=== PATIENT | female | born 1955 | race Caucasian/White ===

== ENCOUNTER 2017-10-24 14:15 | Inpatient (IN) | payer OTHER, MEDICAID ==
[2017-10-24] MEDS ORDERED: LASIX IVP ONE ×2 (14:35→14:54)
--- NOTE | 2017-10-24 14:59 | DR.SOBA ---
HPI - Time Seen Time seen: 14:30 - Primary Care Physician Primary Care Physician: FANG RUBIO , - Complaints Chief Complaint Doctors Comments: Dyspnea, generalised edema, dyspnea chronic These symptoms have worsened in passed week and moreso since yesterday. She had her cardiology f/u 2 days ago and her Lasix was increased from 20 to 30 mg QD. Her last hospitalisation for CHF was at [facility] in [place] in June 2017. That was when her last 2D-ECHO was done. She had labs sometime in September 2017. She of course has orthopnea. Chief Complaint:: PT'S FAMILY STATES " SHE HAS BEEN SWELLING AND HER MD INCREASED HER LASIX ON 10/23/17 TO 30 MG PT IS STILL SWELLING PT HAS HAD SCANT UA AND PT EYES LIDS ARE SWOLLEN AND FLUID FILLED AND LUNGS ARE DEMINISHED .. BR Self Treatment fo Chief Complaint: PT HAS NO COUGH AND SHE IS VERY DROWSY PTS FAMILY STATES SHE TOOK A MUSCLE RELAXER TODAY . .BR - Reviewed Nurses Notes Reviewed: Yes - Source History Provided: Patient, Family Member - Mode of Arrival Mode of Arrival: Ambulatory - Timing Onset of Chief Complaint: 10/13/17 - Context Onset:: At Rest, With Light Exertion PE Risk Factors:: Immobilization History of:: CHF - Modifying Factors Worsens:: Lying Flat, Other (exertion) - Associated Signs and Symptoms Associated Signs and Symptoms: Leg Swelling PMH - PMH Past Medical History: Yes Past Medical History: Anxiety, CHF, Diabetes, Dyslipidemia, Seizures Past Medical History Comment: SEVEN CONCUTIONS, GASTROPORESIS , > LIVER ENZYMES, Past Surgical History: Yes Past Surgical History Comment: SHOULDER , FX TO> LIVER ENZYMES - Family History History of Family Medical Conditions: No - Social History Have you used tobacco products in the last 12 months: No Type of Tobacco Use: None Does any household member use tobacco: No Do you use any recreational Drugs:: No Lives With: Family Lives Where: Home - infectious screening In the last 2 months have you had wt loss of >10#?: NO Have you had fever, night sweats or hemotysis?: No Have you traveled outside the country in the last 6 months?: No Isolation: Standard ROS - Review of Systems Constitutional: No Symptoms Reported Eyes: Other (puffy eyelids) ENTM: No Symptoms Reported Respiratoy: Short of Breath Cardiovascular: No Symptoms Reported Gastrointestinal/Abdominal: Other (distended chronically) Genitourinary: No Symptoms Reported Neurological: No Symptoms Reported Musculoskeletal: No Symptoms Reported Integumentary: No Symptoms Reported Hematologic/Lymphatic: No Symptoms Reported Endocrine: No Symptoms Reported Psychiatric: No Symptoms Reported All Other Systems: Reviewed and Negative PE - Vital Signs Vitals: Temperature 96.3 F Pulse Rate 82 Respiratory Rate 20 Blood Pressure 144/64 O2 Sat by Pulse Oximetry 97 - General Limitations: No Limitations General Appearance: Alert, In No Apparent Distress - Head Head Exam: Normal Inspection - Eyes Eye exam: PERRL, EOMI, Other (swollen/puffy eyelids) - ENT ENT Exam: Normal Exam - Neck Neck Exam: Normal Inspection, Trachea Midline - Chest Chest Inspection: Normal Inspection - Respiratory Respiratory Exam: Bilateral Rales - Cardiovascular Cardiovascular Exam: Regular Rate, Normal Rhythm, +S1, +S2 - Abdominal Exam Abdominal Exam: Normal Bowel Sounds, Distention - Extremities Extremities Exam: Normal Inspection, Full ROM, Edema (bilateral legs) - Neurologic Neurological Exam: Alert, Oriented X3 - Psychiatric Psychiatric Exam: Normal Affect, Normal Mood - Skin Skin Exam: Warm, Dry, Intact, Normal Color ROR - Labs Reviewed Result Diagrams: 10/24/17 14:53 10/24/17 14:53 Laboratory: WBC 6.9 X10^3/uL (3.6-10.0) 10/24/17 14:53 RBC 2.90 X10^6/uL (3.5-5.4) L 10/24/17 14:53 Hgb 9.2 g/dL (12.0-16.0) L 10/24/17 14:53 Hct 28.0 % (36.0-47.0) L 10/24/17 14:53 MCV 96.8 fL (80.0-100.0) 10/24/17 14:53 MCH 31.9 pg (27.0-34.0) 10/24/17 14:53 MCHC 32.9 g/dL (33.0-35.0) L 10/24/17 14:53 RDW 15.7 % (11.6-16.5) 10/24/17 14:53 Plt Count 197 X10^3/uL (150.0-450.0) 10/24/17 14:53 MPV 8.6 fL (7.4-11.0) 10/24/17 14:53 Neut % (Auto) 60.3 % (42.0-75.0) 10/24/17 14:53 Lymph % (Auto) 21.0 % (21.0-51.0) 10/24/17 14:53 [place] % (Auto) 13.0 % (0.0-13.0) 10/24/17 14:53 Eos % (Auto) 5.0 % (0.9-2.9) H 10/24/17 14:53 Baso % (Auto) 0.7 % (0.2-1.0) 10/24/17 14:53 Neut # (Auto) 4.2 x10^3/uL (2.2-4.8) 10/24/17 14:53 Lymph # (Auto) 1.5 X10^3/uL (1.3-2.9) 10/24/17 14:53 [place] # (Auto) 0.9 x10^3/uL (0.3-0.8) H 10/24/17 14:53 Eos # (Auto) 0.3 x10^3/uL (0.0-0.2) H 10/24/17 14:53 Baso # (Auto) 0.1 X10^3/uL (0.0-0.1) 10/24/17 14:53 Absolute Nucleated RBC 0.1 /100WBC 10/24/17 14:53 Sodium 144 mmol/L (136-145) 10/24/17 14:53 Corrected Sodium 145 mmol/L (136-145) 10/24/17 14:53 Potassium 4.7 mmol/L (3.5-5.1) 10/24/17 14:53 Chloride 108 mmol/L (98-107) H 10/24/17 14:53 Carbon Dioxide 32.3 mmol/L (21-32) H 10/24/17 14:53 BUN 39 mg/dL (7-18) H 10/24/17 14:53 Creatinine 1.27 mg/dL (0.55-1.02) H 10/24/17 14:53 Est GFR (MDRD) Af Amer 55 (>60) L 10/24/17 14:53 Est GFR (MDRD) Non-Af 46 (>60) L 10/24/17 14:53 Glucose 129 mg/dL (65-99) H 10/24/17 14:53 Calcium 9.8 mg/dL (8.5-10.1) 10/24/17 14:53 Corrected Calcium 11.4 mg/dL (8.5-10.1) H 10/24/17 14:53 Total Bilirubin 0.50 mg/dL (0.2-1.0) 10/24/17 14:53 AST 66 Units/L (15-37) H 10/24/17 14:53 ALT 36 Units/L (12-78) 10/24/17 14:53 Alkaline Phosphatase 175 Units/L (46-116) H 10/24/17 14:53 Creatine Kinase 74 Units/L (26-192) 10/24/17 14:53 CK-MB (CK-2) 1.6 ng/mL (0-4.0) 10/24/17 14:53 CK/CKMB % Calc 2.2 % (<4) 10/24/17 14:53 Troponin I < 0.02 ng/mL (0-1.5) 10/24/17 14:53 B-Natriuretic Peptide 310 pg/mL (0-79) H 10/24/17 14:53 Total Protein 7.0 g/dL (6.4-8.2) 10/24/17 14:53 Albumin 2.0 g/dL (3.4-5.0) L 10/24/17 14:53 Globulin 5.0 g/dL (2.5-4.5) H 10/24/17 14:53 Albumin/Globulin Ratio 0.4 Ratio (1.1-2.1) L 10/24/17 14:53 Urine pH 5.0 (5.0 - 8.0) 10/24/17 14:53 Ur Specific [place] 1.015 (1.000-1.030) 10/24/17 14:53 Urine Protein 3+ (NEGATIVE) 10/24/17 14:53 Urine Glucose (UA) 4+ (NEGATIVE) 10/24/17 14:53 Urine Ketones Negative (NEGATIVE) 10/24/17 14:53 Urine Occult Blood 1+ (NEGATIVE) 10/24/17 14:53 Urine Nitrite Negative (NEGATIVE) 10/24/17 14:53 Urine Bilirubin Negative (NEGATIVE) 10/24/17 14:53 Urine Urobilinogen Normal (NORMAL) 10/24/17 14:53 Ur Leukocyte Esterase Negative (NEGATIVE) 10/24/17 14:53 - XRAY XRAY Interpreted by: Self (cardiomegaly with cephalisation) - EKG Rate: 81 [place]: LAD Rhythm: NSR Block: None - Diagnosis Discharge Problem: CHF exacerbation - Discharge Plan Disposition: ADMITTED INPATIENT Condition: Stable - Follow ups/Referrals Follow ups/Referrals: FANG RUBIO [Primary Care Provider] - 3 days - Instructions Instructions: Heart Failure, [id number]
[2017-10-24 15:12] LABS: BILIRUBIN,URINE NEGATIVE (NEGATIVE); BLOOD/HEMOGLOBIN,URINE 1+ (NEGATIVE); GLUCOSE, URINE 4+ (NEGATIVE); KETONES,URINE NEGATIVE (NEGATIVE); LEUKOCYTE ESTERASE ,URINE NEGATIVE (NEGATIVE); NITRITES,URINE NEGATIVE (NEGATIVE); PROTEIN,URINE 3+ (NEGATIVE); UROBILINOGEN,URINE NORMAL (NORMAL)
[2017-10-24 15:14] LABS: BASOPHILS # (AUTO) 0.1 X10^3/uL (0.0-0.1); BASOPHILS % (AUTO) 0.7 % (0.2-1.0); EOSINOPHILS # (AUTO) 0.3 x10^3/uL (0.0-0.2); HEMOGLOBIN 9.2 g/dL (12.0-16.0); LYMPHOCYTES # (AUTO) 1.5 X10^3/uL (1.3-2.9); MEAN CORPUSCULAR HEMOGLOBIN 31.9 pg (27.0-34.0); MEAN CORPUSCULAR HGB CONC 32.9 g/dL (33.0-35.0); MEAN CORPUSCULAR VOLUME 96.8 fL (80.0-100.0); MEAN PLATELET VOLUME 8.6 fL (7.4-11.0); MONOCYTES # (AUTO) 0.9 x10^3/uL (0.3-0.8); NEUTROPHILS # (AUTO) 4.2 x10^3/uL (2.2-4.8); NEUTROPHILS % (AUTO) 60.3 % (42.0-75.0); PLATELET COUNT 197 X10^3/uL (150.0-450.0); RED CELL DISTRIBUTION WIDTH 15.7 % (11.6-16.5); WHITE BLOOD COUNT 6.9 X10^3/uL (3.6-10.0)
[2017-10-24 15:23] LABS: BLOOD UREA NITROGEN 39 mg/dL (7-18); CALCIUM 9.8 mg/dL (8.5-10.1); CARBON DIOXIDE 32.3 mmol/L (21-32); CHLORIDE 108 mmol/L (98-107); COR NA(FOR HYPERGLY) 145 mmol/L (136-145); CREATININE 1.27 mg/dL (0.55-1.02); SODIUM 144 mmol/L (136-145); TROPONIN I < 0.02 ng/mL (0-1.5); eGFR BLACK RACES 55 (>60); eGFR NON BLACK RACES 46 (>60)
--- NOTE | 2017-10-24 15:23 | RAD ---
Examination: Chest, portable AP History: SOB and swelling Findings: Mild cardiomegaly. The pulmonary vessels are distended and indistinct with a diffuse bilate ral interstitial prominence. No consolidation, pneumothorax or large pleural effusion. Impression: Findings consistent with CHF. Reported By:
[2017-10-24 15:26] LABS: B-TYPE NATRIURETIC PEPTIDE 310 pg/mL (0-79)
[2017-10-24 15:27] LABS: ALANINE AMINOTRANSFERASE 36 Units/L (12-78); ALKALINE PHOSPHATASE 175 Units/L (46-116); CKMB % 2.2 % (<4); COR CA(FOR HYPOALB) 11.4 mg/dL (8.5-10.1); CREATINE KINASE 74 Units/L (26-192); CREATINE KINASE MB 1.6 ng/mL (0-4.0)
[2017-10-24 15:29] LABS: ASPARTATE AMINO TRANSFERASE 66 Units/L (15-37)
[2017-10-24 15:44] LABS: APPEARANCE,URINE SLIGHTLY HAZY (CLEAR); COLOR,URINE YELLOW (YELLOW)
[2017-10-24 15:45] LABS: AMORPHOUS SEDIMENT,UR 3+ /HPF (NEGATIVE); BACTERIA,URINE NEGATIVE /HPF (NEGATIVE); RBC,URINE 0 - 3 /HPF (NONE SEEN); SQUAMOUS EPITHELIAL CELL,UR FEW /HPF (NEGATIVE)
[2017-10-24] MEDS ORDERED: DUONEB 0.5 MG/3 MG NEB ONE ×2 (15:53→16:45)
[2017-10-24] MEDS ORDERED: DUONEB 0.5 MG/3 MG ONE (15:59)
[2017-10-24] MEDS ORDERED: BENADRYL CAP/TAB 25 MG PO PRN (16:03)
[2017-10-24] MEDS ORDERED: CABERGOLINE PO SCH (16:15)
[2017-10-24] MEDS: DILANTIN CAP 100 MG EXT REL PO SCH ×2 (16:46→20:06)
[2017-10-24] MEDS: SNACK - Diabetic Appropriate PO SCH (20:05)
[2017-10-24] MEDS: LASIX IVP SCH (20:06)
[2017-10-24] MEDS: NEURONTIN CAP 400 MG PO SCH (20:06)
[2017-10-24] MEDS: ICOSAPENT ETHYL PO SCH (21:30)
[2017-10-25] MEDS: NEURONTIN CAP 400 MG PO SCH ×3 (04:09→20:42)
[2017-10-25 05:41] LABS: BASOPHILS % (AUTO) 0.6 % (0.2-1.0); EOSINOPHILS # (AUTO) 0.2 x10^3/uL (0.0-0.2); EOSINOPHILS % (AUTO) 3.2 % (0.9-2.9); HEMATOCRIT 26.6 % (36.0-47.0); HEMOGLOBIN 8.8 g/dL (12.0-16.0); LYMPHOCYTES # (AUTO) 1.1 X10^3/uL (1.3-2.9); LYMPHOCYTES % (AUTO) 18.7 % (21.0-51.0); MEAN CORPUSCULAR HEMOGLOBIN 31.7 pg (27.0-34.0); MEAN CORPUSCULAR HGB CONC 33.2 g/dL (33.0-35.0); MEAN CORPUSCULAR VOLUME 95.7 fL (80.0-100.0); MONOCYTES # (AUTO) 0.6 x10^3/uL (0.3-0.8); MONOCYTES % (AUTO) 10.4 % (0.0-13.0); NEUTROPHILS % (AUTO) 67.1 % (42.0-75.0); PLATELET COUNT 200 X10^3/uL (150.0-450.0); RED BLOOD COUNT 2.78 X10^6/uL (3.5-5.4); RED CELL DISTRIBUTION WIDTH 15.7 % (11.6-16.5); WHITE BLOOD COUNT 5.9 X10^3/uL (3.6-10.0)
[2017-10-25 05:54] LABS: BLOOD UREA NITROGEN 37 mg/dL (7-18); CALCIUM 9.7 mg/dL (8.5-10.1); CARBON DIOXIDE 29.7 mmol/L (21-32); CHLORIDE 109 mmol/L (98-107); COR NA(FOR HYPERGLY) 146 mmol/L (136-145); SODIUM 145 mmol/L (136-145); TROPONIN I < 0.02 ng/mL (0-1.5); eGFR BLACK RACES 54 (>60); eGFR NON BLACK RACES 44 (>60)
[2017-10-25 05:58] LABS: ALANINE AMINOTRANSFERASE 30 Units/L (12-78); ALKALINE PHOSPHATASE 164 Units/L (46-116); ASPARTATE AMINO TRANSFERASE 43 Units/L (15-37); CKMB % 2.9 % (<4); COR CA(FOR HYPOALB) 11.3 mg/dL (8.5-10.1); CREATINE KINASE 34 Units/L (26-192); TOTAL PROTEIN 6.6 g/dL (6.4-8.2)
--- NOTE | 2017-10-25 07:37 | RAD ---
HISTORY: Shortness of breath Study: Single-view chest, done portably Comparison: 10/24/2017. Findings: Trachea is midline. There is cardiomegaly with atherosclerotic calcification and uncoiling of the aor tic arch. Some interval improvement in the reduction of pulmonary vascular congestion is seen. CHF is less with reduced interstitial prominence. No consolidation, pleural fluid or pneumothorax is seen. Osseous structures displayed no acute abnormality. There is evidence of prior ORIF of the right proxi mal humerus. Surgical clips are present in the right axilla. IMPRESSION: CHF with interval improvement. Reported By:
--- NOTE | 2017-10-25 08:16 | DR.H&P ---
H&P - History & Physical for Day of: H&P Date: 10/24/17 - Chief Complaint Chief Complaint: SOB, WEAKNESS, SWELLING ALL OVER - Allergies Allergies/Adverse Reactions: Allergies Allergy/AdvReac Type Severity Reaction Status Date / Time promethazine [From Phenergan] Allergy Verified 10/24/17 14:17 - History of Present Illness History of Present Illness: 62 WF ER ADMISSION AFTER PRESENTING WITH FAMILY CO INCREASE SOB AND DIFFUSE SWELLING, WORSE TO LOWER EXTREMITIES AND ABDOMEN. PT FAMILY REPORTS HER PCP IS IN [place] AND SHE RECENTLY INCREASED HER LASIX DOSE WITHOUT IMPROVEMENT. PT ALSO HAS HAD OVERALL DECLINE IN HEALTH OVER LAST MONTH. PT WAS RECENTLY IN REHAB THERAPY IN [facility] FOLLOWING TRAUMATIC FRACTURE OF RLE. PT HAD PMH OF HTN, CHF, GERD, OA. PT ADMITTED FOR EVALUATION OF INCREAS SOB, CHF EXACERBATION, ABDOMINAL DISTENTION, AND WEAKNESS - Past Medical History Past Medical History: Anxiety, CHF, Diabetes, Dyslipidemia, Seizures - Past Surgical History Surgical History: , Hysterectomy, Ortho Surgery - Family History Family Medical History: Diabetes Mellitus, Cancer, Coronary Artery Disease - Social History Have you used tobacco products in the last 12 months: No Type of Tobacco Use: None Does any household member use tobacco: No Alcohol Use: None Drug Use: None - Medications Home Medications: Atorvastatin Calcium [Lipitor] 1 tab PO DAILY 10/24/17 [History Confirmed ] Budesonide-Formoterol [SYMBICORT INH 160-4.5 mcg (10.2 g) *] 1 inh IN DAILY [History Confirmed 10/24/17] Cabergoline 0.25 tab PO WEEKLY 10/24/17 [History Confirmed 10/24/17] Cabergoline 0.5 tab PO WEEKLY 10/24/17 [History Confirmed 10/24/17] Cranberry Fruit Extract [Cranberry] 4,200 mg PO DAILY 10/24/17 [History Confirmed 10/24/17] Cyclobenzaprine HCl [FLEXERIL 10 MG *] 5 - 10 mg PO TID PRN 10/24/17 [History Confirmed 10/24/17] Diphenhydramine HCl [BENADRYL 25 MG TAB/CAP *] 1 tab PO PRN PRN 10/24/17 [ History Confirmed 10/24/17] Duloxetine HCl 1 tab PO DAILY 10/24/17 [History Confirmed 10/24/17] Empagliflozin [Jardiance] 1 tab PO DAILY 10/24/17 [History Confirmed 10/24/17] Fenofibric Acid 135 mg PO DAILY 10/24/17 [History Confirmed 10/24/17] Fluticasone Propionate [Flonase Allergy Relief Ch (NASAL)] 2 spray INH DAILY [History Confirmed 10/24/17] Furosemide [LASIX TAB 20 MG *] 30 mg PO DAILY 10/24/17 [History Confirmed ] Gabapentin [NEURONTIN CAP 400 MG *] 1 tab PO TID 10/24/17 [History Confirmed ] Icosapent Ethyl [Vascepa] 2 cap PO BID 10/24/17 [History Confirmed 10/24/17] Icosapent Ethyl [Vascepa] 2 tab PO BID 10/24/17 [History Confirmed 10/24/17] Insulin Detemir (Levemir) [LEVEMIR INSULIN *] 50 units SC BID 10/24/17 [History Confirmed 10/24/17] Linaclotide [Linzess] 1 tab PO DAILY 10/24/17 [History Confirmed 10/24/17] Lisinopril 1.5 tab PO DAILY 10/24/17 [History Confirmed 10/24/17] Lorazepam [ATIVAN 0.5 MG TAB *] 0.5 - 1 tab PO BID PRN 10/24/17 [History Confirmed 10/24/17] Misc Home Med [Patient's Home Medication] 1 tab PO DAILY 10/24/17 [History Confirmed 10/24/17] Montelukast Sodium [Singulair] 1 tab PO DAILY 10/24/17 [History Confirmed ] Phenytoin Sodium Ext Rel [DILANTIN CAP 100 MG EXT REL *] 100 mg PO QID 10/24/17 [History Confirmed 10/24/17] Vitamin E 1 tab PO DAILY 10/24/17 [History Confirmed 10/24/17] - Review of Systems Constitutional: No Symptoms Reported Eyes: No Symptoms Reported ENT: No Symptoms Reported Respiratory: Shortness of Breath, SOB with Excertion Cardiovascular: Edema Gastrointestinal: Other (SWELLING TO ABD) Genitourinary: No Symptoms Reported Musculoskeletal: Back Pain, Leg Pain Skin: Wound Neurological: Weakness - Physical Exam Vital Signs: Temperature 97.9 F Pulse Rate [Right Brachial] 88 Pulse Rate 86 Respiratory Rate 20 Blood Pressure [Left Arm] 173/76 Blood Pressure 144/64 O2 Sat by Pulse Oximetry 90 Oriented: Person Eyes: Normal Ear: Normal Nose: Normal Throat: Normal Respiratory: RML Diminished, RLL Diminished, LML Diminished, LLL Diminished Cardiovascular: Normal : Normal Auscultation: Bowel Sounds: Normal Palpation: Normal Tenderness: Diffuse Skin: Decreased Turgur, Wound (RIGHT INNER ANKLE) Musculoskeletal: Back:Thoracic, Back:Lumbar, Swelling, Tender Psychiatric: Anxiety Affect: Anxious Speech Pattern: Clear, Appropriate - Assessment/Plan (1) SOB (shortness of breath) Status: Acute Plan: ADMIT, CARDIAC MONITORING. IV LASIX, BP MONITORING, RESUME HOME MEDS. AM LABS. STRICT I & OS, RESP THERAPY SUPPLEMENTAL O2 (2) CHF exacerbation Status: Acute (3) Weakness Status: Acute (4) HTN (hypertension) Status: Acute (5) GERD (gastroesophageal reflux disease) Status: Acute
[2017-10-25] MEDS ORDERED: ZESTRIL TAB 20 MG ONE (08:39)
[2017-10-25] MEDS: ZESTRIL TAB 20 MG PO SCH (08:43)
[2017-10-25] MEDS: LASIX IVP SCH ×2 (08:43→20:40)
[2017-10-25] MEDS: CYMBALTA PO SCH (08:43)
[2017-10-25] MEDS: TRICOR TAB 145 MG PO SCH (08:44)
[2017-10-25] MEDS: LIPITOR TAB 40 MG PO SCH (08:44)
[2017-10-25] MEDS: SINGULAIR TAB 10 MG PO SCH (08:44)
[2017-10-25] MEDS: LINZESS PO SCH (08:45)
[2017-10-25] MEDS: DILANTIN CAP 100 MG EXT REL PO SCH ×4 (08:46→20:42)
[2017-10-25] MEDS: FLONASE NASAL SPRAY ENOSTRIL SCH (08:46)
[2017-10-25 08:49] VITALS: BMI 40.8
[2017-10-25] MEDS: PROVENTIL NEB TX 0.083% 2.5MG/ 3ML NEB SCH (08:58)
[2017-10-25] MEDS: PULMICORT NEB TX 0.5 MG NEB SCH (08:58)
[2017-10-25] MEDS ORDERED: PATIENT'S HOME MEDICATION (Budesonide-Formoterol 1 INH) IN SCH (09:00)
[2017-10-25] MEDS ORDERED: CRANBERRY FRUIT EXTRACT 4200 MG PO SCH (09:00)
[2017-10-25] MEDS ORDERED: VITAMIN E PO SCH (09:00)
[2017-10-25] MEDS ORDERED: [UNRECOGNIZED DRUG - REMARK] INH SCH (09:00)
[2017-10-25] MEDS: ATIVAN TAB 0.5 MG PO SCH (10:48)
[2017-10-25] MEDS: ICOSAPENT ETHYL PO SCH ×3 (13:12→20:42)
[2017-10-25] MEDS: EMPAGLIFLOZIN PO SCH ×2 (13:12→13:36)
--- NOTE | 2017-10-25 16:12 | CT ---
HISTORY: Abdominal distention, suspected ascites. CHF, dyspnea Study: CT abdomen and pelvis without IV or oral contrast Comparison: No priors Technique: Multiple axial images of the abdomen and pelvis were obtained from the lung bases to the pubic symphy sis without the administration of IV or oral contrast. Coronal and sagittal images are also reviewed . Dose reduction techniques utilized automatic exposure control. Findings: There is generalized subcutaneous edema involving lower chest, abdomen and pelvic regions. There are small bilateral pleural effusions. Areas of increased interstitial markings are present inv olving both lungs, likely representing CHF/edema. There is a moderate amount of abdomen and pelvic as cites. The liver is normal in size without evidence of capsular nodularity. Spleen is normal in size. Multiple splenic granulomas are present The pancreas, kidneys, and adrenal glands are unremarkable i n their CT appearance. The gallbladder is unremarkable in its CT appearance. There is no evidence of bowel wall thickening. No free intraperitoneal air is seen. There is a very large amount retroperito ricardo fat present. Appendix is not identified.. The colon is unremarkable. Specifically, there is no diverticulosis noted within the sigmoid colon. There is a Wong catheter present within the urinary bladder which decompressed. The bony structures are grossly intact. IMPRESSION: Generalized subcutaneous edema involving lower chest, abdomen and pelvic regions. Small bilateral pleural effusions. Moderate ascites present within the abdomen and pelvis. No evidence of bowel wall thickening or obstruction is seen. Relatively large amount of retroperitoneal fat present. Reported By:
[2017-10-25] MEDS: HumuLIN R SUBCUT PRN ×2 (17:52→22:00)
[2017-10-25] MEDS: SNACK - Diabetic Appropriate PO SCH (20:42)
[2017-10-26] MEDS: ULTRAM PO PRN ×3 (01:09→15:46)
[2017-10-26 05:42] LABS: BASOPHILS # (AUTO) 0.1 X10^3/uL (0.0-0.1); BASOPHILS % (AUTO) 1.1 % (0.2-1.0); EOSINOPHILS # (AUTO) 0.1 x10^3/uL (0.0-0.2); EOSINOPHILS % (AUTO) 1.6 % (0.9-2.9); HEMATOCRIT 26.8 % (36.0-47.0); HEMOGLOBIN 9.1 g/dL (12.0-16.0); LYMPHOCYTES # (AUTO) 1.5 X10^3/uL (1.3-2.9); LYMPHOCYTES % (AUTO) 20.7 % (21.0-51.0); MEAN CORPUSCULAR HEMOGLOBIN 32.4 pg (27.0-34.0); MEAN CORPUSCULAR HGB CONC 33.9 g/dL (33.0-35.0); MEAN CORPUSCULAR VOLUME 95.5 fL (80.0-100.0); MEAN PLATELET VOLUME 7.8 fL (7.4-11.0); MONOCYTES # (AUTO) 0.8 x10^3/uL (0.3-0.8); MONOCYTES % (AUTO) 10.9 % (0.0-13.0); NEUTROPHILS # (AUTO) 4.7 x10^3/uL (2.2-4.8); NEUTROPHILS % (AUTO) 65.7 % (42.0-75.0); PLATELET COUNT 222 X10^3/uL (150.0-450.0); RED BLOOD COUNT 2.81 X10^6/uL (3.5-5.4); RED CELL DISTRIBUTION WIDTH 15.3 % (11.6-16.5); WHITE BLOOD COUNT 7.2 X10^3/uL (3.6-10.0)
[2017-10-26] MEDS: HumuLIN R SUBCUT PRN ×4 (05:47→23:00)
[2017-10-26 06:00] LABS: CALCIUM 9.7 mg/dL (8.5-10.1); CARBON DIOXIDE 28.9 mmol/L (21-32); COR CA(FOR HYPOALB) 11.3 mg/dL (8.5-10.1); CREATININE 1.35 mg/dL (0.55-1.02); TOTAL PROTEIN 7.1 g/dL (6.4-8.2)
--- NOTE | 2017-10-26 08:12 | RAD ---
Examination: Portable AP chest History: SOB CHF Comparison 10/25/2017 Findings: Continued cardiomegaly. Slight additional improvement in CHF with residual central pulmonar y vascular dilatation. No evidence for residual edema or pleural fluid. Impression: Additional improvement with persistent cardiac enlargement and pulmonary vascular congest ion. Reported By:
[2017-10-26] MEDS ORDERED: ZESTRIL TAB 20 MG ONE (08:27)
[2017-10-26] MEDS: ATIVAN TAB 0.5 MG PO SCH (08:28)
[2017-10-26] MEDS: DILANTIN CAP 100 MG EXT REL PO SCH ×4 (08:29→20:45)
[2017-10-26] MEDS: CYMBALTA PO SCH (08:29)
[2017-10-26] MEDS: ICOSAPENT ETHYL PO SCH ×2 (08:30→20:44)
[2017-10-26] MEDS: LINZESS PO SCH (08:30)
[2017-10-26] MEDS: SINGULAIR TAB 10 MG PO SCH (08:30)
[2017-10-26] MEDS: EMPAGLIFLOZIN PO SCH (08:30)
[2017-10-26] MEDS: FLONASE NASAL SPRAY ENOSTRIL SCH (08:30)
[2017-10-26] MEDS: ZESTRIL TAB 20 MG PO SCH (08:31)
[2017-10-26] MEDS: NEURONTIN CAP 400 MG PO SCH ×2 (08:31→20:45)
[2017-10-26] MEDS: TRICOR TAB 145 MG PO SCH (08:31)
[2017-10-26] MEDS: LIPITOR TAB 40 MG PO SCH (08:31)
[2017-10-26] MEDS: PULMICORT NEB TX 0.5 MG NEB SCH (09:02)
[2017-10-26] MEDS: PROVENTIL NEB TX 0.083% 2.5MG/ 3ML NEB SCH (09:02)
[2017-10-26] MEDS ORDERED: LASIX PO ONE ×2 (10:03)
[2017-10-26] MEDS: LASIX IVP SCH ×2 (10:03→20:45)
[2017-10-26] MEDS ORDERED: LASIX ONE (10:07)
[2017-10-26] MEDS: PROCTOSOL HC CRM 2.5% EXT PRN (17:55)
[2017-10-26] MEDS: LASIX PO SCH (23:00)
[2017-10-26] MEDS: CLEOCIN PO SCH (23:00)
[2017-10-26] MEDS: K-DUR TAB 20 MEQ PO SCH (23:34)
[2017-10-26] MEDS: SNACK - Diabetic Appropriate PO SCH (23:34)
--- NOTE | 2017-10-27 06:10 | RAD ---
HISTORY: Dyspnea Study: Chest AP portable Comparison: 10/26/2017 Findings: The heart remains enlarged. Mild pulmonary venous congestion remains. No interstitial edema, alveolar edema, alveolar infiltrates, or pleural effusions are identified. The bony thorax is unremarkable wi th the exception of postsurgical changes in the right proximal humerus. IMPRESSION: Cardiomegaly with mild residual pulmonary venous congestion Reported By:
[2017-10-27 06:21] LABS: BASOPHILS # (AUTO) 0.1 X10^3/uL (0.0-0.1); BASOPHILS % (AUTO) 0.9 % (0.2-1.0); EOSINOPHILS # (AUTO) 0.2 x10^3/uL (0.0-0.2); EOSINOPHILS % (AUTO) 2.1 % (0.9-2.9); HEMATOCRIT 28.4 % (36.0-47.0); HEMOGLOBIN 9.4 g/dL (12.0-16.0); LYMPHOCYTES # (AUTO) 1.4 X10^3/uL (1.3-2.9); LYMPHOCYTES % (AUTO) 19.3 % (21.0-51.0); MEAN CORPUSCULAR HEMOGLOBIN 31.8 pg (27.0-34.0); MEAN CORPUSCULAR HGB CONC 33.2 g/dL (33.0-35.0); MEAN CORPUSCULAR VOLUME 95.7 fL (80.0-100.0); MEAN PLATELET VOLUME 8.9 fL (7.4-11.0); MONOCYTES % (AUTO) 14.7 % (0.0-13.0); NEUTROPHILS # (AUTO) 4.5 x10^3/uL (2.2-4.8); PLATELET COUNT 187 X10^3/uL (150.0-450.0); RED BLOOD COUNT 2.97 X10^6/uL (3.5-5.4); RED CELL DISTRIBUTION WIDTH 15.5 % (11.6-16.5); WHITE BLOOD COUNT 7.1 X10^3/uL (3.6-10.0)
[2017-10-27] MEDS: CLEOCIN PO SCH (06:25)
[2017-10-27] MEDS: HumuLIN R SUBCUT PRN ×4 (06:34→20:49)
[2017-10-27 07:03] LABS: ALBUMIN 2.1 g/dL (3.4-5.0); CALCIUM 9.7 mg/dL (8.5-10.1); COR CA(FOR HYPOALB) 11.2 mg/dL (8.5-10.1); CREATININE 1.38 mg/dL (0.55-1.02); TOTAL PROTEIN 7.4 g/dL (6.4-8.2)
[2017-10-27] MEDS: PROVENTIL NEB TX 0.083% 2.5MG/ 3ML NEB SCH (08:32)
[2017-10-27] MEDS: PULMICORT NEB TX 0.5 MG NEB SCH (08:32)
[2017-10-27] MEDS ORDERED: XYLOCAINE 1 % (PLAIN) ONE (09:28)
[2017-10-27] MEDS ORDERED: ZESTRIL TAB 20 MG ONE (09:53)
[2017-10-27] MEDS: CYMBALTA PO SCH (10:00)
[2017-10-27] MEDS: ATIVAN TAB 0.5 MG PO SCH (10:00)
[2017-10-27] MEDS: EMPAGLIFLOZIN PO SCH (10:00)
[2017-10-27] MEDS: ZESTRIL TAB 20 MG PO SCH (10:00)
[2017-10-27] MEDS: ICOSAPENT ETHYL PO SCH ×2 (10:00→20:49)
[2017-10-27] MEDS: K-DUR TAB 20 MEQ PO SCH ×2 (10:00→20:36)
[2017-10-27] MEDS: SINGULAIR TAB 10 MG PO SCH (10:00)
[2017-10-27] MEDS: DILANTIN CAP 100 MG EXT REL PO SCH ×3 (10:00→20:35)
[2017-10-27] MEDS: LASIX PO SCH (10:00)
[2017-10-27] MEDS: LIPITOR TAB 40 MG PO SCH (10:00)
[2017-10-27] MEDS: FLONASE NASAL SPRAY ENOSTRIL SCH (10:00)
--- NOTE | 2017-10-27 10:15 | RAD ---
HISTORY: Central line placement Study: AP portable chest Comparison: 10/26/2017 Findings: Slight interval decrease in the pulmonary vascular congestion is noted. The heart size is borderline enlarged. A left central line has been placed. The tip is at the cavoatrial junction. No complica ting features are noted. Prior trauma to the right shoulder is noted. Prior right axillary node dis section has been for performed. IMPRESSION: 1. Borderline cardiomegaly with minimal pulmonary vascular congestion. The vascular congestion has decreased when compared to the prior examination. 2. Interval placement of a left-sided subclavian central line. The tip is at the cavoatrial junctio n. No complicating features or pneumothorax is noted. Reported By:
[2017-10-27 11:23] LABS: LIPASE,BODY FLUID 103
--- NOTE | 2017-10-27 11:25 | RAD ---
History: Shortness of breath Study: Portable AP chest Comparison: Yesterday Findings: The heart size is prominent. There is mild vascular congestion slightly improved from yeste rday's exam. There is no effusion. Impression: Resolving congestive heart failure Reported By:
[2017-10-27 11:41] LABS: CLOT FORMATION NEGATIVE; RBC BODY FLUID 40 Cubic/mm; WBC BODY FLUID 134 Cubic/mm
[2017-10-27] MEDS: NEURONTIN CAP 400 MG PO SCH ×2 (11:48→20:36)
[2017-10-27] MEDS: TRICOR TAB 145 MG PO SCH (11:48)
[2017-10-27] MEDS: LINZESS PO SCH (11:49)
[2017-10-27] MEDS ORDERED: ZOFRAN INJ 4 MG VIAL IVP PRN (13:12)
[2017-10-27] MEDS: TEFLARO 600 MG in NS 100 ML IV + SPIKE MINIBAG* 100 ML IV SCH ×2 (13:50→20:37)
[2017-10-27] MEDS: TUCKS MEDICATED PAD EXT PRN (13:53)
[2017-10-27] MEDS: PROCTOSOL HC CRM 2.5% EXT PRN (13:53)
[2017-10-27] MEDS: EMLA CREAM TOP PRN (13:53)
[2017-10-27] MEDS ORDERED: NS 500 ML IV 500 ML IV ONE (14:00)
[2017-10-27] MEDS: LASIX IVP SCH (20:35)
[2017-10-27] MEDS: SNACK - Diabetic Appropriate PO SCH (20:36)
[2017-10-28] MEDS: HumuLIN R SUBCUT PRN ×4 (05:39→21:47)
[2017-10-28 06:24] LABS: EOSINOPHILS # (AUTO) 0.2 x10^3/uL (0.0-0.2); HEMATOCRIT 30.1 % (36.0-47.0); LYMPHOCYTES # (AUTO) 1.2 X10^3/uL (1.3-2.9); MEAN PLATELET VOLUME 9.5 fL (7.4-11.0); MONOCYTES # (AUTO) 0.9 x10^3/uL (0.3-0.8); NEUTROPHILS # (AUTO) 3.6 x10^3/uL (2.2-4.8)
[2017-10-28 06:35] LABS: BASOPHILS % (AUTO) 0.6 % (0.2-1.0); MEAN CORPUSCULAR HGB CONC 33.3 g/dL (33.0-35.0); MEAN CORPUSCULAR VOLUME 96.2 fL (80.0-100.0); MONOCYTES % (AUTO) 15.4 % (0.0-13.0); PLATELET COUNT 160 X10^3/uL (150.0-450.0); RED BLOOD COUNT 3.13 X10^6/uL (3.5-5.4); RED CELL DISTRIBUTION WIDTH 15.6 % (11.6-16.5)
[2017-10-28 06:54] LABS: CALCIUM 9.5 mg/dL (8.5-10.1); CARBON DIOXIDE 28.2 mmol/L (21-32); COR CA(FOR HYPOALB) 11.1 mg/dL (8.5-10.1); CREATININE 1.42 mg/dL (0.55-1.02); TOTAL PROTEIN 7.1 g/dL (6.4-8.2)
--- NOTE | 2017-10-28 07:25 | RAD ---
Exam: Chest, frontal view History: Congestive heart failure. Hypertension. Comparison previous chest radiograph from 10/27/2017 Findings: Left subclavian line is again seen with the tip extending to the right atrium. Mild cardiomegaly with slight increase in degree of vascular congestion is noted. Superimposed atelectasis may be present a t the right base. IMPRESSION: Cardiomegaly with mild increase in degree of vascular congestion. Minimal atelectasis right base. Reported By:
[2017-10-28] MEDS: PULMICORT NEB TX 0.5 MG NEB SCH (08:05)
[2017-10-28] MEDS: PROVENTIL NEB TX 0.083% 2.5MG/ 3ML NEB SCH (08:05)
[2017-10-28] MEDS ORDERED: ZESTRIL TAB 20 MG ONE (08:25)
[2017-10-28] MEDS: TEFLARO 600 MG in NS 100 ML IV + SPIKE MINIBAG* 100 ML IV SCH ×2 (08:34→21:02)
[2017-10-28] MEDS: LIPITOR TAB 40 MG PO SCH (08:34)
[2017-10-28] MEDS: ZESTRIL TAB 20 MG PO SCH (08:34)
[2017-10-28] MEDS: LASIX IVP SCH ×2 (08:34→21:01)
[2017-10-28] MEDS: TRICOR TAB 145 MG PO SCH (08:34)
[2017-10-28] MEDS: SINGULAIR TAB 10 MG PO SCH (08:35)
[2017-10-28] MEDS: NEURONTIN CAP 400 MG PO SCH ×2 (08:35→21:02)
[2017-10-28] MEDS: EMPAGLIFLOZIN PO SCH (08:35)
[2017-10-28] MEDS: ICOSAPENT ETHYL PO SCH ×2 (08:35→21:01)
[2017-10-28] MEDS: DILANTIN CAP 100 MG EXT REL PO SCH ×4 (08:35→21:01)
[2017-10-28] MEDS: K-DUR TAB 20 MEQ PO SCH ×2 (08:35→21:02)
[2017-10-28] MEDS: ATIVAN TAB 0.5 MG PO SCH (08:35)
[2017-10-28] MEDS: FLONASE NASAL SPRAY ENOSTRIL SCH (08:36)
[2017-10-28] MEDS: CYMBALTA PO SCH (08:44)
[2017-10-28] MEDS: LINZESS PO SCH (10:43)
[2017-10-28] MEDS: TUCKS MEDICATED PAD EXT PRN (11:40)
[2017-10-28] MEDS: EMLA CREAM TOP PRN (11:40)
[2017-10-28] MEDS: PROCTOSOL HC CRM 2.5% EXT PRN (11:40)
--- NOTE | 2017-10-28 17:08 | DR.PROGNOT ---
Hospital Progress Notes - Progress Note for Day of: Progress Note Date: 10/28/17 - Chief Complaint Chief Complaint: S/P paracenteses and dainage about 10 L of ascitis. still c/o abdominal pressure . able to lie flat without SOB. stable VS and lytes and renal functions are normal. - Past Medical Family Social History Past Med/Fam/Surg Hx: No changes since H&P Allergies: Allergies promethazine [From Phenergan] Allergy (Verified 10/24/17 14:17) - Review Of Systems ROS: Changes notes (describe) - Vital Signs Vital Signs: Temperature 99.1 F Pulse Rate [Right Brachial] 91 Pulse Rate 88 Respiratory Rate 20 Blood Pressure [Right Arm] 148/68 Blood Pressure [Left Arm] 184/87 Blood Pressure 187/90 O2 Sat by Pulse Oximetry 94 - Physical Exam Oriented: Person Eyes: Normal Ear: Normal Nose: Normal Throat: Normal Cardiovascular: Tachycardia : Normal GI:Auscultation: Normal GI:Palpation: Other (distended abdomen with ascitis ,mild tenderness and edema of the skin ) GI: Tenderness: Diffuse Skin: Decreased Turgur, Wound (RIGHT INNER ANKLE) Musculoskeletal: Back:Thoracic, Back:Lumbar, Swelling, Tender Psychiatric: Anxiety Mood Description: Calm Affect: Anxious Speech Pattern: Clear, Appropriate - Laboratory and Diagnostics Result Diagrams: 10/28/17 04:58 10/28/17 04:58 Labs: 10/27/17 14:24 Abdomen - Preliminary Laboratory WBC 6.0 X10^3/uL (3.6-10.0) 10/28/17 04:58 RBC 3.13 X10^6/uL (3.5-5.4) L 10/28/17 04:58 Hgb 10.0 g/dL (12.0-16.0) L 10/28/17 04:58 Hct 30.1 % (36.0-47.0) L 10/28/17 04:58 MCV 96.2 fL (80.0-100.0) 10/28/17 04:58 MCH 32.0 pg (27.0-34.0) 10/28/17 04:58 MCHC 33.3 g/dL (33.0-35.0) 10/28/17 04:58 RDW 15.6 % (11.6-16.5) 10/28/17 04:58 Plt Count 160 X10^3/uL (150.0-450.0) 10/28/17 04:58 MPV 9.5 fL (7.4-11.0) 10/28/17 04:58 Neut % (Auto) 61.0 % (42.0-75.0) 10/28/17 04:58 Lymph % (Auto) 20.0 % (21.0-51.0) L 10/28/17 04:58 [place] % (Auto) 15.4 % (0.0-13.0) H 10/28/17 04:58 Eos % (Auto) 3.0 % (0.9-2.9) H 10/28/17 04:58 Baso % (Auto) 0.6 % (0.2-1.0) 10/28/17 04:58 Neut # (Auto) 3.6 x10^3/uL (2.2-4.8) 10/28/17 04:58 Lymph # (Auto) 1.2 X10^3/uL (1.3-2.9) L 10/28/17 04:58 [place] # (Auto) 0.9 x10^3/uL (0.3-0.8) H 10/28/17 04:58 Eos # (Auto) 0.2 x10^3/uL (0.0-0.2) 10/28/17 04:58 Baso # (Auto) 0.0 X10^3/uL (0.0-0.1) 10/28/17 04:58 Absolute Nucleated RBC 0.1 /100WBC 10/28/17 04:58 Sodium 143 mmol/L (136-145) 10/28/17 04:58 Corrected Sodium 146 mmol/L (136-145) H 10/28/17 04:58 Potassium 4.3 mmol/L (3.5-5.1) 10/28/17 04:58 Chloride 107 mmol/L (98-107) 10/28/17 04:58 Carbon Dioxide 28.2 mmol/L (21-32) 10/28/17 04:58 BUN 41 mg/dL (7-18) H 10/28/17 04:58 Creatinine 1.42 mg/dL (0.55-1.02) H 10/28/17 04:58 Est GFR (MDRD) Af Amer 49 (>60) L 10/28/17 04:58 Est GFR (MDRD) Non-Af 40 (>60) L 10/28/17 04:58 Glucose 240 mg/dL (65-99) H 10/28/17 04:58 POC Glucose (mg/dL) 392 mg/dL (65-99) H 10/28/17 16:51 Calcium 9.5 mg/dL (8.5-10.1) 10/28/17 04:58 Corrected Calcium 11.1 mg/dL (8.5-10.1) H 10/28/17 04:58 Total Bilirubin 0.30 mg/dL (0.2-1.0) 10/28/17 04:58 AST 33 Units/L (15-37) 10/28/17 04:58 ALT 27 Units/L (12-78) 10/28/17 04:58 Alkaline Phosphatase 176 Units/L (46-116) H 10/28/17 04:58 Creatine Kinase 34 Units/L (26-192) 10/25/17 05:26 CK-MB (CK-2) 1.0 ng/mL (0-4.0) 10/25/17 05:26 CK/CKMB % Calc 2.9 % (<4) 10/25/17 05:26 Troponin I < 0.02 ng/mL (0-1.5) 10/25/17 05:26 B-Natriuretic Peptide 310 pg/mL (0-79) H 10/24/17 14:53 Total Protein 7.1 g/dL (6.4-8.2) 10/28/17 04:58 Albumin 2.0 g/dL (3.4-5.0) L 10/28/17 04:58 Globulin 5.1 g/dL (2.5-4.5) H 10/28/17 04:58 Albumin/Globulin Ratio 0.4 Ratio (1.1-2.1) L 10/28/17 04:58 Specimen Type Catherized urine 10/24/17 14:53 Urine Color Yellow (YELLOW) 10/24/17 14:53 Urine Appearance Slightly hazy (CLEAR) 10/24/17 14:53 Urine pH 5.0 (5.0 - 8.0) 10/24/17 14:53 Ur Specific [place] 1.015 (1.000-1.030) 10/24/17 14:53 Urine Protein 3+ (NEGATIVE) 10/24/17 14:53 Urine Glucose (UA) 4+ (NEGATIVE) 10/24/17 14:53 Urine Ketones Negative (NEGATIVE) 10/24/17 14:53 Urine Occult Blood 1+ (NEGATIVE) 10/24/17 14:53 Urine Nitrite Negative (NEGATIVE) 10/24/17 14:53 Urine Bilirubin Negative (NEGATIVE) 10/24/17 14:53 Urine Urobilinogen Normal (NORMAL) 10/24/17 14:53 Ur Leukocyte Esterase Negative (NEGATIVE) 10/24/17 14:53 Urine RBC 0 - 3 /HPF (NONE SEEN) 10/24/17 14:53 Urine WBC 0 - 3 /HPF (NONE SEEN) 10/24/17 14:53 Ur Squamous Epith Cells Few /HPF (NEGATIVE) 10/24/17 14:53 Amorphous Sediment 3+ /HPF (NEGATIVE) 10/24/17 14:53 Urine Bacteria Negative /HPF (NEGATIVE) 10/24/17 14:53 Ur Culture Indicated? No/not indicated 10/24/17 14:53 Fluid WBC 134 Cubic/mm 10/27/17 10:47 Fluid RBC 40 Cubic/mm 10/27/17 10:47 Fluid Sodium 144 10/27/17 10:53 Fluid Potassium 4.2 10/27/17 10:53 Fluid Chloride 114 10/27/17 10:53 Fluid Albumin < 0.5 10/27/17 10:53 Fluid Lipase 103 10/27/17 10:53 Peritoneal Glucose 277 10/27/17 10:53 Peritoneal Amylase 14 10/27/17 10:53 Cytology Specimen To follow 10/27/17 10:53 - Assessment and Plan 1: tense ascitis , S/P paracentese and drainage. CHF. 2: will drain more fluid , slowly and check renal function and elecrolytes . 3: DM 4: CKD 5: same plan.. - Problem Patient Problems: Patient Problems CHF exacerbation (Acute) I50.9 GERD (gastroesophageal reflux disease) (Acute) K21.9 HTN (hypertension) (Acute) I10 SOB (shortness of breath) (Acute) R06.02 Weakness (Acute) R53.1
[2017-10-28] MEDS: SNACK - Diabetic Appropriate PO SCH (21:03)
[2017-10-29 05:27] LABS: BASOPHILS % (AUTO) 0.7 % (0.2-1.0); EOSINOPHILS # (AUTO) 0.2 x10^3/uL (0.0-0.2); HEMATOCRIT 26.4 % (36.0-47.0); HEMOGLOBIN 8.7 g/dL (12.0-16.0); LYMPHOCYTES # (AUTO) 1.5 X10^3/uL (1.3-2.9); LYMPHOCYTES % (AUTO) 24.7 % (21.0-51.0); MEAN CORPUSCULAR HEMOGLOBIN 31.5 pg (27.0-34.0); MEAN CORPUSCULAR HGB CONC 32.9 g/dL (33.0-35.0); MEAN CORPUSCULAR VOLUME 95.8 fL (80.0-100.0); MEAN PLATELET VOLUME 8.2 fL (7.4-11.0); MONOCYTES # (AUTO) 0.8 x10^3/uL (0.3-0.8); MONOCYTES % (AUTO) 12.6 % (0.0-13.0); NEUTROPHILS # (AUTO) 3.6 x10^3/uL (2.2-4.8); PLATELET COUNT 172 X10^3/uL (150.0-450.0); RED BLOOD COUNT 2.76 X10^6/uL (3.5-5.4); RED CELL DISTRIBUTION WIDTH 15.3 % (11.6-16.5); WHITE BLOOD COUNT 6.2 X10^3/uL (3.6-10.0)
[2017-10-29] MEDS: HumuLIN R SUBCUT PRN ×3 (05:36→12:05)
[2017-10-29 05:40] LABS: ALBUMIN 1.7 g/dL (3.4-5.0); CARBON DIOXIDE 30.7 mmol/L (21-32); COR CA(FOR HYPOALB) 10.8 mg/dL (8.5-10.1); CREATININE 1.36 mg/dL (0.55-1.02); TOTAL PROTEIN 6.1 g/dL (6.4-8.2)
[2017-10-29] MEDS ORDERED: ZESTRIL TAB 20 MG ONE (08:44)
[2017-10-29] MEDS: LASIX IVP SCH (08:55)
[2017-10-29] MEDS: DILANTIN CAP 100 MG EXT REL PO SCH (08:55)
[2017-10-29] MEDS: TEFLARO 600 MG in NS 100 ML IV + SPIKE MINIBAG* 100 ML IV SCH (08:55)
[2017-10-29] MEDS: ZESTRIL TAB 20 MG PO SCH (08:56)
[2017-10-29] MEDS: TRICOR TAB 145 MG PO SCH (08:57)
[2017-10-29] MEDS: NEURONTIN CAP 400 MG PO SCH (08:57)
[2017-10-29] MEDS: CYMBALTA PO SCH (08:57)
[2017-10-29] MEDS: K-DUR TAB 20 MEQ PO SCH (08:57)
[2017-10-29] MEDS: LIPITOR TAB 40 MG PO SCH (08:58)
[2017-10-29] MEDS: SINGULAIR TAB 10 MG PO SCH (08:58)
[2017-10-29] MEDS: ATIVAN TAB 0.5 MG PO SCH (08:58)
[2017-10-29] MEDS: LINZESS PO SCH (08:58)
[2017-10-29] MEDS: EMPAGLIFLOZIN PO SCH (08:59)
[2017-10-29] MEDS: FLONASE NASAL SPRAY ENOSTRIL SCH (08:59)
[2017-10-29] MEDS: ICOSAPENT ETHYL PO SCH (08:59)
[2017-10-29] MEDS: PROVENTIL NEB TX 0.083% 2.5MG/ 3ML NEB SCH (09:00)
[2017-10-29] MEDS: PULMICORT NEB TX 0.5 MG NEB SCH (09:00)
[2017-10-29] MEDS ORDERED: LEVEMIR SC SCH (10:00)
[2017-10-29 12:15] VITALS: BP 153/77
== END 2017-10-29 12:50 | disposition short-term general hospital (02) | DRG 292 ==
LOC: ER 14:29 → MED/SURG 15:51
PROVIDERS: ADMIT Internal Medicine; ATTEND Internal Medicine
PROC: 0W9G3ZX Drainage of Peritoneal Cavity, Percutaneous Approach, Diagnostic (ICD-10-PCS; principal; 2017-10-27)
PROC: 05H633Z Insertion of Infusion Device into Left Subclavian Vein, Percutaneous Approach (ICD-10-PCS; 2017-10-27)
DX: I50.9 Heart failure, unspecified (principal); R60.0 Localized edema; R06.09 Other forms of dyspnea; E11.65 Type 2 diabetes mellitus with hyperglycemia; E78.2 Mixed hyperlipidemia; R06.02 Shortness of breath; R53.1 Weakness; I10 Essential (primary) hypertension; K21.9 Gastro-esophageal reflux disease without esophagitis; R18.8 Other ascites; I87.2 Venous insufficiency (chronic) (peripheral); I51.7 Cardiomegaly; N18.9 Chronic kidney disease, unspecified; E66.01 Morbid (severe) obesity due to excess calories; Z87.81 Personal history of (healed) traumatic fracture
CPT/HCPCS: 36415; 51702; 71045; 74176; 80051; 80053; 81001; 82040; 82150; 82438; 82550; 82553; 82947; 83690; 83880; 84484; 85025; 87070; 88112; 89050; 89051; 93005; 93010; 94640; 94760; 96365; 96374; 97535; 99284; A4216; A4222; 1956; J0712; J1815; J1940; J2001; J2405; J7613; J7620; J7626

== ENCOUNTER 2017-11-19 01:31 | Emergency (ER) | payer OTHER, MEDICAID ==
[2017-11-19 01:52] VITALS: BP 138/89; BMI 32.9
[2017-11-19] MEDS ORDERED: ZOFRAN INJ 4 MG VIAL IVP ONE (02:35)
[2017-11-19] MEDS ORDERED: MORPHINE SULFATE INJ 4 MG IVP ONE (02:35)
[2017-11-19] MEDS ORDERED: MORPHINE SULFATE INJ 4 MG ONE (02:36)
[2017-11-19] MEDS ORDERED: ZOFRAN INJ 4 MG VIAL ONE (02:36)
[2017-11-19 02:52] LABS: BASOPHILS % (AUTO) 0.5 % (0.2-1.0); EOSINOPHILS # (AUTO) 0.2 x10^3/uL (0.0-0.2); EOSINOPHILS % (AUTO) 4.1 % (0.9-2.9); HEMATOCRIT 29.8 % (36.0-47.0); HEMOGLOBIN 9.8 g/dL (12.0-16.0); LYMPHOCYTES # (AUTO) 1.2 X10^3/uL (1.3-2.9); LYMPHOCYTES % (AUTO) 19.1 % (21.0-51.0); MEAN CORPUSCULAR HEMOGLOBIN 31.1 pg (27.0-34.0); MEAN CORPUSCULAR HGB CONC 32.8 g/dL (33.0-35.0); MEAN CORPUSCULAR VOLUME 94.8 fL (80.0-100.0); MEAN PLATELET VOLUME 8.5 fL (7.4-11.0); MONOCYTES # (AUTO) 0.6 x10^3/uL (0.3-0.8); MONOCYTES % (AUTO) 10.2 % (0.0-13.0); NEUTROPHILS % (AUTO) 66.1 % (42.0-75.0); PLATELET COUNT 161 X10^3/uL (150.0-450.0); RED BLOOD COUNT 3.15 X10^6/uL (3.5-5.4); RED CELL DISTRIBUTION WIDTH 15.5 % (11.6-16.5); WHITE BLOOD COUNT 6.1 X10^3/uL (3.6-10.0)
[2017-11-19 02:59] LABS: ALANINE AMINOTRANSFERASE 39 Units/L (12-78); ALBUMIN 2.5 g/dL (3.4-5.0); ALKALINE PHOSPHATASE 183 Units/L (46-116); AMYLASE 134 Units/L (25-115); ASPARTATE AMINO TRANSFERASE 54 Units/L (15-37); BLOOD UREA NITROGEN 38 mg/dL (7-18); CALCIUM 9.8 mg/dL (8.5-10.1); CARBON DIOXIDE 25.8 mmol/L (21-32); CHLORIDE 110 mmol/L (98-107); COR NA(FOR HYPERGLY) 147 mmol/L (136-145); CREATININE 1.15 mg/dL (0.55-1.02); LIPASE 680 Units/L (73-393); SODIUM 144 mmol/L (136-145); TOTAL PROTEIN 7.4 g/dL (6.4-8.2); eGFR BLACK RACES > 60 (>60); eGFR NON BLACK RACES 51 (>60)
--- NOTE | 2017-11-19 03:55 | DR.GENAD ---
HPI - PCP Primary Care Physician: RAMIRO - HPI Comment HPI Comment: PATIENT ON DIURETICS. SHE IS NOT DIUESING AND ASCITIS IS GETTING WORSE. NO FEVER. - Complaint/Symptoms Chief Complaint Doctors Comments: ASCITS THAT IS INCREASING ABDOMINAL GIRTH AND CAUGING INCREASING RESPIRATORY DISTRESS. KNOWN PACREATITIS. WILL SEE GI DOCTOR IN AM. PAIN WORSE TODAY. Chief Complaint:: PT VOMITING X 1 DAY PT STATES" I'M HAVING TROUBLE BREATHING CAUSE MY STOMACH IS PUSHING UP FROM BEING SO SWOLLEN" - Nurses notes reviewed Nurses Notes Review: Yes - Source History Provided: Patient - Mode of Arrival Mode of Arrival: Wheelchair - Timing Onset of Chief Complaint: 11/18/17 Came on: Gradually - Duration Duration: Constant Duration: Days - Severity Severity: Moderate PMH - PMH Past Medical History: Yes Past Medical History: Anxiety, CHF, Diabetes, Dyslipidemia, Seizures Past Surgical History: Yes Surgical History: , Hysterectomy, Ortho Surgery Past Surgical History Comment: SHOULDER - Family History History of Family Medical Conditions: Yes Family Medical History: Diabetes Mellitus, Cancer, Coronary Artery Disease - Social History Does any household member use tobacco: No Do you use any recreational Drugs:: No Lives With: Family Lives Where: Home - infectious screening In the last 2 months have you had wt loss of >10#?: NO Have you had fever, night sweats or hemotysis?: No Have you traveled outside the country in the last 6 months?: No Isolation: Standard ROS - Review of Systems Constitutional: Weakness, Fatigue, Loss of Appetite. negative: Chills, Fever Eyes: No Symptoms Reported ENTM: Nose Congestion. negative: Ear Pain, Ear Discharge, Nose Discharge, Throat Pain Respiratoy: Non-Productive Cough, Short of Breath, Wheezing Cardiovascular: Chest Pain Gastrointestinal/Abdominal: Abdominal Pain Genitourinary: No Symptoms Reported. negative: Dysuria, Frequency, Hematuria Neurological: No Symptoms Reported, Weakness. negative: Headache, Dizziness Musculoskeletal: Muscle Pain Integumentary: No Symptoms Reported Hematologic/Lymphatic: Easy Bleeding, Easy Bruising Endocrine: No Symptoms Reported All Other Systems: Reviewed and Negative PE - Vital Signs Vitals: Temperature 98.4 F Pulse Rate 98 Respiratory Rate 18 Blood Pressure [Right Arm] 148/67 Blood Pressure [Left Arm] 153/77 Blood Pressure 138/89 O2 Sat by Pulse Oximetry 100 - General Limitations: No Limitations General Appearance: Alert - Head Head Exam: Normal Inspection - Eyes Eye exam: Normal Appearance - ENT ENT Exam: Normal External Ear Exam External Ear Exam: Normal External Inspection TM/Canal Exam: Bilateral Normal Nose Exam: Normal Nose Exam, Sinus Tenderness Mouth Exam: Normal Inspection Throat Exam: Normal Inspection - Neck Neck Exam: Trachea Midline. negative: Tenderness, Meningismus, Lymphadenopathy - Chest Chest Inspection: Symmetric Chest Wall Rise - Respiratory Respiratory Exam: Normal Lung Sounds Bilat Respiratory Exam: Bilateral Clear to Auscultation - Cardiovascular Cardiovascular Exam: Regular Rate, Normal Rhythm, Normal Heart Sounds - Abdominal Exam Abdominal Exam: Normal Bowel Sounds, Soft. negative: Tenderness - Extremities Extremities Exam: Normal Inspection - Back Back Exam: Normal Inspection - Neurologic Neurological Exam: Alert, Oriented X3 - Skin Skin Exam: Normal Color MDM - Additional Information Additional Information Obtained From: Family - Differential Diagnosis Differential Diagnosis: ABDOMINAL PAINM, ASCITIS, PANCREATITIS. Course - Treatment Treatment: SEE ORDERS. PATIENT GVEN IM PAIN MED. DO NOT WISH TO BE ADMITTED. WILL SEE GI IN AM. DO NOT WISH TO HAVE IV LASIX. - Education/Counseling Education/Counseling: Patient, Education Educated On: Diagnosis, Needs for Follow Up ROR - Labs Reviewed Laboratory Results Reviewed?: Yes Result Diagrams: 11/19/17 02:30 11/19/17 02:30 Laboratory: WBC 6.1 X10^3/uL (3.6-10.0) 11/19/17 02:30 RBC 3.15 X10^6/uL (3.5-5.4) L 11/19/17 02:30 Hgb 9.8 g/dL (12.0-16.0) L 11/19/17 02:30 Hct 29.8 % (36.0-47.0) L 11/19/17 02:30 MCV 94.8 fL (80.0-100.0) 11/19/17 02:30 MCH 31.1 pg (27.0-34.0) 11/19/17 02:30 MCHC 32.8 g/dL (33.0-35.0) L 11/19/17 02:30 RDW 15.5 % (11.6-16.5) 11/19/17 02:30 Plt Count 161 X10^3/uL (150.0-450.0) 11/19/17 02:30 MPV 8.5 fL (7.4-11.0) 11/19/17 02:30 Neut % (Auto) 66.1 % (42.0-75.0) 11/19/17 02:30 Lymph % (Auto) 19.1 % (21.0-51.0) L 11/19/17 02:30 [place] % (Auto) 10.2 % (0.0-13.0) 11/19/17 02:30 Eos % (Auto) 4.1 % (0.9-2.9) H 11/19/17 02:30 Baso % (Auto) 0.5 % (0.2-1.0) 11/19/17 02:30 Neut # (Auto) 4.0 x10^3/uL (2.2-4.8) 11/19/17 02:30 Lymph # (Auto) 1.2 X10^3/uL (1.3-2.9) L 11/19/17 02:30 [place] # (Auto) 0.6 x10^3/uL (0.3-0.8) 11/19/17 02:30 Eos # (Auto) 0.2 x10^3/uL (0.0-0.2) 11/19/17 02:30 Baso # (Auto) 0.0 X10^3/uL (0.0-0.1) 11/19/17 02:30 Absolute Nucleated RBC 0.0 /100WBC 11/19/17 02:30 APTT 29.4 SECONDS (22.9-36.5) 11/19/17 02:30 PTT Comment - 11/19/17 02:30 Sodium 144 mmol/L (136-145) 11/19/17 02:30 Corrected Sodium 147 mmol/L (136-145) H 11/19/17 02:30 Potassium 3.8 mmol/L (3.5-5.1) 11/19/17 02:30 Chloride 110 mmol/L (98-107) H 11/19/17 02:30 Carbon Dioxide 25.8 mmol/L (21-32) 11/19/17 02:30 BUN 38 mg/dL (7-18) H 11/19/17 02:30 Creatinine 1.15 mg/dL (0.55-1.02) H 11/19/17 02:30 Est GFR (MDRD) Af Amer > 60 (>60) 11/19/17 02:30 Est GFR (MDRD) Non-Af 51 (>60) L 11/19/17 02:30 Glucose 207 mg/dL (65-99) H 11/19/17 02:30 Calcium 9.8 mg/dL (8.5-10.1) 11/19/17 02:30 Corrected Calcium 11.0 mg/dL (8.5-10.1) H 11/19/17 02:30 Total Bilirubin 0.30 mg/dL (0.2-1.0) 11/19/17 02:30 AST 54 Units/L (15-37) H 11/19/17 02:30 ALT 39 Units/L (12-78) 11/19/17 02:30 Alkaline Phosphatase 183 Units/L (46-116) H 11/19/17 02:30 B-Natriuretic Peptide 118 pg/mL (0-79) H 11/19/17 02:30 Total Protein 7.4 g/dL (6.4-8.2) 11/19/17 02:30 Albumin 2.5 g/dL (3.4-5.0) L 11/19/17 02:30 Globulin 4.9 g/dL (2.5-4.5) H 11/19/17 02:30 Albumin/Globulin Ratio 0.5 Ratio (1.1-2.1) L 11/19/17 02:30 Amylase 134 Units/L (25-115) H 11/19/17 02:30 Lipase 680 Units/L (73-393) H 11/19/17 02:30 - Diagnosis Discharge Problem: Ascites Qualifiers: Ascites type: malignant Qualified Code(s): R18.0 - Malignant ascites Pancreatitis Qualifiers: Chronicity: acute Pancreatitis type: other Acute pancreatitis complication: unspecified Qualified Code(s): K85.80 - Other acute pancreatitis without necrosis or infection - Discharge Plan Disposition: 01 HOME, SELF-CARE Condition: Stable - Follow ups/Referrals Follow ups/Referrals: NFD,None [Primary Care Provider] - 1 day EFREN HERRERA [STAFF PHYSICIAN] - 1 day - Instructions Instructions: Acute Pancreatitis, [id number], Ascites Additional Instructions: RETURN TO ED IF WORSE.
[2017-11-19] MEDS ORDERED: LASIX IVP ONE ×2 (04:45→04:46)
== END 2017-11-19 04:59 | disposition home or self-care (01) ==
LOC: ER 01:31
DX: K85.80 Other acute pancreatitis without necrosis or infection (principal); R18.0 Malignant ascites; R06.02 Shortness of breath
CPT/HCPCS: 36415; 80053; 82150; 83690; 83880; 85025; 85730; 96365; 96374; 96375; 99283; A4222; J1940; J2270; J2405

== ENCOUNTER 2017-12-21 16:36 | Observation (INO) | payer OTHER, MEDICAID ==
[2017-12-21 16:52] LABS: BILIRUBIN,URINE NEGATIVE (NEGATIVE); BLOOD/HEMOGLOBIN,URINE 2+ (NEGATIVE); GLUCOSE, URINE 4+ (NEGATIVE); KETONES,URINE 1+ (NEGATIVE); LEUKOCYTE ESTERASE ,URINE 1+ (NEGATIVE); NITRITES,URINE NEGATIVE (NEGATIVE); PROTEIN,URINE 4+ (NEGATIVE); UROBILINOGEN,URINE NORMAL (NORMAL)
--- NOTE | 2017-12-21 16:55 | DR.AMS ---
HPI - Time Seen Time seen: 16:50 - PCP Primary Care Physician: FANG RUBIO - Complaint Cheif Complaint Doctors Comments: Nurses note noted. Hx. obtained from pt's. daughter. confusion for several days. She was admitted to [facility] then and d/ c. home today. She paracentesis and a liver biopsy done while in-house at [facility]. She was diagnosed with liver failure. At d/c today she had a script for lactulose. The daughter states that she is more confused than she was this morning and is running a fever also. Chief Complaint:: DAUGHTER STATES PT. WAS DISCHARGED FROM [facility] THIS MORNING. SHE WAS ADMITTED THERE FOR ELEVATED AMMONIA LEVEL AND A NEW DX. OF LIVER FAILURE. SHE STATES HER MOTHER HAS BEEN CONFUSED AND SLEEPING ALL DAY SINCE SHE GOT HOME. PT. HAS ALSO BEEN RUNNING A LOW GRADE TEMP. - Reviewed Nurses Notes Reviewed: Yes - Source History Provided: Family Member - Mode of Arrival Mode of Arrival: Wheelchair - Timing Onset of Chief Complaint: 12/21/17 PMH - PMH Past Medical History: Yes Past Medical History: Anxiety, CHF, Diabetes, Dyslipidemia, Seizures Past Medical History Comment: LIVER PROBLEMS Past Surgical History: Yes Surgical History: , Hysterectomy, Ortho Surgery - Family History History of Family Medical Conditions: Yes Family Medical History: Diabetes Mellitus, Cancer, Coronary Artery Disease - Social History Does patient currently use any type of tobacco product: No Have you used tobacco products in the last 12 months: No Type of Tobacco Use: None Does any household member use tobacco: No Alcohol Use: None Do you use any recreational Drugs:: No Lives With: Family Lives Where: Home - infectious screening In the last 2 months have you had wt loss of >10#?: NO Have you had fever, night sweats or hemotysis?: No Have you traveled outside the country in the last 6 months?: No Isolation: Standard ROS - Review of Systems Constitutional: No Symptoms Reported Eyes: No Symptoms Reported ENTM: No Symptoms Reported Respiratoy: No Symptoms Reported Cardiovascular: No Symptoms Reported Gastrointestinal/Abdominal: Other (Distention) Genitourinary: No Symptoms Reported Neurological: Other (Confusion) Musculoskeletal: No Symptoms Reported Integumentary: No Symptoms Reported Hematologic/Lymphatic: No Symptoms Reported Endocrine: No Symptoms Reported Psychiatric: No Symptoms Reported All Other Systems: Reviewed and Negative PE - Vitals Vital Signs: Temp Pulse Pulse Resp BP BP BP 12/21/17 18:30 88 20 125/58 12/21/17 18:27 101 F H 12/21/17 18:15 86 20 110/56 12/21/17 18:00 85 20 108/53 12/21/17 17:45 87 20 108/53 12/21/17 17:30 88 20 110/56 12/21/17 17:00 92 H 20 109/54 12/21/17 16:38 100.9 F H 97 H 24 108/50 11/19/17 01:47 138/89 10/29/17 12:00 153/77 10/29/17 04:00 148/67 Pulse Ox 12/21/17 18:30 97 12/21/17 18:27 12/21/17 18:15 96 12/21/17 18:00 98 12/21/17 17:45 96 12/21/17 17:30 95 12/21/17 17:00 95 12/21/17 16:38 87 L 11/19/17 01:47 10/29/17 12:00 10/29/17 04:00 - General Limitations: Altered Mental Status General Appearance: Alert, In No Apparent Distress, Lethargic - Head Head Exam: Normal Inspection - Eyes Eye exam: Normal Appearance, PERRL, EOMI - ENT ENT Exam: Normal Exam - Neck Neck Exam: Normal Inspection, Full ROM - Chest Chest Inspection: Normal Inspection - Respiratory Respiratory Exam: Normal Lung Sounds Bilat - Cardiovascular Cardiovascular Exam: Regular Rate, Normal Rhythm, Normal Heart Sounds, +S1, +S2 - Abdominal Exam Abdominal Exam: Normal Bowel Sounds, Soft, Ascites (moderate) - Extremities Extremities Exam: Normal Inspection, Full ROM, Edema (trace to 1+ b/l.) - Back Back Exam: Normal Inspection - Neurological Neurological Exam: Alert Patient Oriented To: Person, Place - Psychological Psychiatric Exam: Normal Affect, Normal Mood - Skin Skin Exam: Warm, Dry, Intact, Normal Color ROR - Labs Reviewed Result Diagrams: 12/21/17 16:50 12/21/17 16:50 Laboratory: WBC 8.5 X10^3/uL (3.6-10.0) 12/21/17 16:50 RBC 2.61 X10^6/uL (3.5-5.4) L 12/21/17 16:50 Hgb 8.3 g/dL (12.0-16.0) L 12/21/17 16:50 Hct 24.5 % (36.0-47.0) L 12/21/17 16:50 MCV 93.6 fL (80.0-100.0) 12/21/17 16:50 MCH 31.6 pg (27.0-34.0) 12/21/17 16:50 MCHC 33.8 g/dL (33.0-35.0) 12/21/17 16:50 RDW 15.8 % (11.6-16.5) 12/21/17 16:50 Plt Count 199 X10^3/uL (150.0-450.0) 12/21/17 16:50 MPV 7.5 fL (7.4-11.0) 12/21/17 16:50 Neut % (Auto) 77.0 % (42.0-75.0) H 12/21/17 16:50 Lymph % (Auto) 10.8 % (21.0-51.0) L 12/21/17 16:50 [place] % (Auto) 10.8 % (0.0-13.0) 12/21/17 16:50 Eos % (Auto) 1.1 % (0.9-2.9) 12/21/17 16:50 Baso % (Auto) 0.3 % (0.2-1.0) 12/21/17 16:50 Neut # (Auto) 6.5 x10^3/uL (2.2-4.8) H 12/21/17 16:50 Lymph # (Auto) 0.9 X10^3/uL (1.3-2.9) L 12/21/17 16:50 [place] # (Auto) 0.9 x10^3/uL (0.3-0.8) H 12/21/17 16:50 Eos # (Auto) 0.1 x10^3/uL (0.0-0.2) 12/21/17 16:50 Baso # (Auto) 0.0 X10^3/uL (0.0-0.1) 12/21/17 16:50 Absolute Nucleated RBC 0.0 /100WBC 12/21/17 16:50 Sodium 139 mmol/L (136-145) 12/21/17 16:50 Corrected Sodium 141 mmol/L (136-145) 12/21/17 16:50 Potassium 4.4 mmol/L (3.5-5.1) 12/21/17 16:50 Chloride 109 mmol/L (98-107) H 12/21/17 16:50 Carbon Dioxide 24.4 mmol/L (21-32) 12/21/17 16:50 BUN 35 mg/dL (7-18) H 12/21/17 16:50 Creatinine 1.27 mg/dL (0.55-1.02) H 12/21/17 16:50 Est GFR (MDRD) Af Amer 55 (>60) L 12/21/17 16:50 Est GFR (MDRD) Non-Af 46 (>60) L 12/21/17 16:50 Glucose 187 mg/dL (65-99) H 12/21/17 16:50 Calcium 8.9 mg/dL (8.5-10.1) 12/21/17 16:50 Corrected Calcium 10.7 mg/dL (8.5-10.1) H 12/21/17 16:50 Total Bilirubin 0.40 mg/dL (0.2-1.0) 12/21/17 16:50 AST 69 Units/L (15-37) H 12/21/17 16:50 ALT 41 Units/L (12-78) 12/21/17 16:50 Alkaline Phosphatase 246 Units/L (46-116) H 12/21/17 16:50 Ammonia 46 umol/L (11-32) H 12/21/17 16:50 Total Protein 5.9 g/dL (6.4-8.2) L 12/21/17 16:50 Albumin 1.7 g/dL (3.4-5.0) L 12/21/17 16:50 Globulin 4.2 g/dL (2.5-4.5) 12/21/17 16:50 Albumin/Globulin Ratio 0.4 Ratio (1.1-2.1) L 12/21/17 16:50 Specimen Type Catherized urine 12/21/17 16:22 Urine Color Yellow (YELLOW) 12/21/17 16:22 Urine Appearance Cloudy (CLEAR) 12/21/17 16:22 Urine pH 5.0 (5.0 - 8.0) 12/21/17 16:22 Ur Specific [place] 1.020 (1.000-1.030) 12/21/17 16:22 Urine Protein 4+ (NEGATIVE) 12/21/17 16:22 Urine Glucose (UA) 4+ (NEGATIVE) 12/21/17 16:22 Urine Ketones 1+ (NEGATIVE) 12/21/17 16:22 Urine Occult Blood 2+ (NEGATIVE) 12/21/17 16:22 Urine Nitrite Negative (NEGATIVE) 12/21/17 16:22 Urine Bilirubin Negative (NEGATIVE) 12/21/17 16:22 Urine Urobilinogen Normal (NORMAL) 12/21/17 16:22 Ur Leukocyte Esterase 1+ (NEGATIVE) 12/21/17 16:22 Urine RBC 3-5 /HPF (NONE SEEN) 12/21/17 16:22 Urine WBC 10-20 /HPF (NONE SEEN) 12/21/17 16:22 Ur Squamous Epith Cells Moderate /HPF (NEGATIVE) 12/21/17 16:22 Amorphous Sediment 2+ /HPF (NEGATIVE) 12/21/17 16:22 Urine Bacteria Trace /HPF (NEGATIVE) 12/21/17 16:22 Hyaline Casts Rare /LPF (NEGATIVE) 12/21/17 16:22 Urine Yeast Rare /HPF (NEGATIVE) 12/21/17 16:22 Ur Culture Indicated? Yes/culture set up 12/21/17 16:22 - Diagnosis Discharge Problem: Liver cirrhosis, Anemia of chronic disorder - Discharge Plan Disposition: 09 ADMITTED INPATIENT Condition: Stable - Follow ups/Referrals Follow ups/Referrals: FANG RUBIO [Primary Care Provider] - 3 days - Instructions Instructions: Cirrhosis
[2017-12-21 17:03] LABS: COLOR,URINE YELLOW (YELLOW)
[2017-12-21 17:04] LABS: APPEARANCE,URINE CLOUDY (CLEAR)
[2017-12-21 17:23] LABS: BASOPHILS % (AUTO) 0.3 % (0.2-1.0); EOSINOPHILS # (AUTO) 0.1 x10^3/uL (0.0-0.2); EOSINOPHILS % (AUTO) 1.1 % (0.9-2.9); HEMATOCRIT 24.5 % (36.0-47.0); HEMOGLOBIN 8.3 g/dL (12.0-16.0); LYMPHOCYTES # (AUTO) 0.9 X10^3/uL (1.3-2.9); LYMPHOCYTES % (AUTO) 10.8 % (21.0-51.0); MEAN CORPUSCULAR HEMOGLOBIN 31.6 pg (27.0-34.0); MEAN CORPUSCULAR HGB CONC 33.8 g/dL (33.0-35.0); MEAN CORPUSCULAR VOLUME 93.6 fL (80.0-100.0); MEAN PLATELET VOLUME 7.5 fL (7.4-11.0); MONOCYTES # (AUTO) 0.9 x10^3/uL (0.3-0.8); MONOCYTES % (AUTO) 10.8 % (0.0-13.0); NEUTROPHILS # (AUTO) 6.5 x10^3/uL (2.2-4.8); PLATELET COUNT 199 X10^3/uL (150.0-450.0); RED BLOOD COUNT 2.61 X10^6/uL (3.5-5.4); RED CELL DISTRIBUTION WIDTH 15.8 % (11.6-16.5); WHITE BLOOD COUNT 8.5 X10^3/uL (3.6-10.0)
[2017-12-21 17:28] LABS: BACTERIA,URINE TRACE /HPF (NEGATIVE); SQUAMOUS EPITHELIAL CELL,UR MODERATE /HPF (NEGATIVE)
[2017-12-21 17:29] LABS: AMORPHOUS SEDIMENT,UR 2+ /HPF (NEGATIVE); HYALINE CASTS, URINE RARE /LPF (NEGATIVE); YEAST,URINE RARE /HPF (NEGATIVE)
[2017-12-21 17:31] LABS: ALBUMIN 1.7 g/dL (3.4-5.0); CALCIUM 8.9 mg/dL (8.5-10.1); CARBON DIOXIDE 24.4 mmol/L (21-32); COR CA(FOR HYPOALB) 10.7 mg/dL (8.5-10.1); CREATININE 1.27 mg/dL (0.55-1.02); TOTAL PROTEIN 5.9 g/dL (6.4-8.2)
[2017-12-21] MEDS ORDERED: CABERGOLINE 0.25 MG PO SCH (19:00)
[2017-12-21] MEDS: NEURONTIN CAP 400 MG PO SCH (21:32)
[2017-12-21] MEDS: DILANTIN CAP 100 MG EXT REL PO SCH (21:32)
[2017-12-21] MEDS: CHRONULAC PO SCH (21:32)
[2017-12-21] MEDS: VITAMIN B-6 PO SCH (21:33)
[2017-12-21] MEDS: ICOSAPENT ETHYL 2 GM PO SCH (21:34)
[2017-12-22] MEDS: DILANTIN CAP 100 MG EXT REL PO SCH ×3 (05:08→21:31)
[2017-12-22] MEDS: CHRONULAC PO SCH ×3 (05:08→21:31)
[2017-12-22] MEDS: NEURONTIN CAP 400 MG PO SCH ×3 (05:09→21:32)
[2017-12-22 05:20] LABS: BASOPHILS % (AUTO) 0.4 % (0.2-1.0); EOSINOPHILS % (AUTO) 0.4 % (0.9-2.9); HEMATOCRIT 24.8 % (36.0-47.0); HEMOGLOBIN 8.2 g/dL (12.0-16.0); LYMPHOCYTES # (AUTO) 1.1 X10^3/uL (1.3-2.9); LYMPHOCYTES % (AUTO) 16.2 % (21.0-51.0); MEAN CORPUSCULAR HEMOGLOBIN 31.6 pg (27.0-34.0); MEAN CORPUSCULAR HGB CONC 33.1 g/dL (33.0-35.0); MEAN CORPUSCULAR VOLUME 95.6 fL (80.0-100.0); MEAN PLATELET VOLUME 8.1 fL (7.4-11.0); MONOCYTES # (AUTO) 0.5 x10^3/uL (0.3-0.8); MONOCYTES % (AUTO) 8.1 % (0.0-13.0); NEUTROPHILS % (AUTO) 74.9 % (42.0-75.0); PLATELET COUNT 176 X10^3/uL (150.0-450.0); RED BLOOD COUNT 2.59 X10^6/uL (3.5-5.4); WHITE BLOOD COUNT 6.7 X10^3/uL (3.6-10.0)
[2017-12-22 05:33] LABS: ALBUMIN 1.7 g/dL (3.4-5.0); CALCIUM 8.8 mg/dL (8.5-10.1); COR CA(FOR HYPOALB) 10.6 mg/dL (8.5-10.1); CREATININE 1.25 mg/dL (0.55-1.02)
[2017-12-22] MEDS ORDERED: NORVASC TAB 2.5 MG ONE (08:26)
[2017-12-22] MEDS ORDERED: ZESTRIL TAB 20 MG ONE (08:27)
[2017-12-22] MEDS: TRICOR TAB 145 MG PO SCH (08:52)
[2017-12-22] MEDS: ZESTRIL TAB 20 MG PO SCH (08:52)
[2017-12-22] MEDS: LASIX PO SCH (08:53)
[2017-12-22] MEDS: SINGULAIR TAB 10 MG PO SCH (08:53)
[2017-12-22] MEDS: NORVASC TAB 2.5 MG PO SCH (08:53)
[2017-12-22] MEDS: CYMBALTA PO SCH (08:53)
[2017-12-22] MEDS: LIPITOR TAB 40 MG PO SCH (08:53)
[2017-12-22] MEDS: ICOSAPENT ETHYL 2 GM PO SCH ×2 (08:53→21:30)
[2017-12-22] MEDS: VITAMIN B-6 PO SCH ×4 (08:54→21:30)
[2017-12-22] MEDS: VITAMIN E PO SCH (08:54)
[2017-12-22 14:56] VITALS: BMI 34.9
--- NOTE | 2017-12-22 18:17 | DR.H&P ---
H&P - History & Physical for Day of: H&P Date: 12/22/17 - Chief Complaint Chief Complaint: AMS - Allergies Allergies/Adverse Reactions: Allergies Allergy/AdvReac Type Severity Reaction Status Date / Time promethazine [From Phenergan] Allergy Verified 10/24/17 14:17 - History of Present Illness History of Present Illness: 62 WF ER ADMISSION AFER PRESENTING WITH FAMILY REPORTING PT HAS RECENTLY BEEN DX WITH LIVER FAILURE AND STARTED ON LACTULOSE. FAMILY REPORTS PT HAS HAD INCREASE CONFUSION. PT HAD PMH OF CIRRHOSIS, HTN, OA, JOB, CHF. - Past Medical History Past Medical History: Anxiety, Arthritis, Cirrhosis, CHF, Diabetes, Dyslipidemia , Seizures - Past Surgical History Surgical History: , Hysterectomy, Ortho Surgery - Family History Family Medical History: Diabetes Mellitus, Cancer, Coronary Artery Disease - Social History Does patient currently use any type of tobacco product: No Have you used tobacco products in the last 12 months: No Type of Tobacco Use: None Does any household member use tobacco: No Alcohol Use: None Drug Use: None - Medications Home Medications: Amlodipine Besylate [Norvasc] 1 tab PO DAILY 12/21/17 [History Confirmed ] Lactulose 10 gm PO TID 12/21/17 [History Confirmed 12/22/17] Misc Home Med [Patient's Home Medication (Non-PO)] 100 ml SC .EVENING 12/21/17 [ History Confirmed 12/21/17] Pyridoxine [Vitamin B-6] 100 mg PO QID 12/21/17 [History Confirmed 12/22/17] Empagliflozin [Jardiance] 25 mg PO DAILY 12/22/17 [History Confirmed 12/22/17] Icosapent Ethyl [Vascepa] 1 gm PO BIDWM 12/22/17 [History Confirmed 12/22/17] - Review of Systems Constitutional: Weakness Eyes: No Symptoms Reported ENT: No Symptoms Reported Respiratory: SOB with Excertion Cardiovascular: No Symptoms Reported, Edema Gastrointestinal: Abdominal Pain Musculoskeletal: No Symptoms Reported Skin: No Symptoms Reported Neurological: Confusion - Physical Exam Vital Signs: Temperature 98.1 F Pulse Rate [Left Brachial] 88 Pulse Rate 97 Respiratory Rate 20 Blood Pressure [Right Arm] 131/61 Blood Pressure [Left Arm] 124/62 Blood Pressure 108/50 O2 Sat by Pulse Oximetry 91 Oriented: Person Eyes: Normal Ear: Normal Nose: Normal Throat: Normal Respiratory: RLL Diminished, LLL Diminished Cardiovascular: Normal, Edema : Normal Auscultation: Bowel Sounds: Normal Palpation: Liver Enlarged, Other (DIFFUSE DISTENTION) Skin: Normal Musculoskeletal: Back:Lumbar Psychiatric: Normal Mood Description: Calm Speech Pattern: Clear, Appropriate - Assessment/Plan (1) Altered mental status Status: Acute Plan: ADMIT, AMMONIA LEVEL ON ADMISSION. RESUME HOME MEDS. BP CONTROL. VERIFY HOME MEDS, RESUME LACTULOSE. CBC CMP CT HEAD ON ADMISSION (2) Liver cirrhosis Status: Acute (3) Ascites Status: Acute (4) GERD (gastroesophageal reflux disease) Status: Acute (5) HTN (hypertension) Status: Acute (6) Weakness Status: Acute
[2017-12-23] MEDS: CHRONULAC PO SCH (06:07)
[2017-12-23] MEDS: DILANTIN CAP 100 MG EXT REL PO SCH (06:08)
[2017-12-23] MEDS: NEURONTIN CAP 400 MG PO SCH (06:08)
[2017-12-23] MEDS ORDERED: ZESTRIL TAB 20 MG ONE (08:31)
[2017-12-23] MEDS ORDERED: NORVASC TAB 2.5 MG ONE (08:31)
[2017-12-23] MEDS: ICOSAPENT ETHYL 2 GM PO SCH (08:46)
[2017-12-23] MEDS: LASIX PO SCH (08:46)
[2017-12-23] MEDS: LIPITOR TAB 40 MG PO SCH (08:46)
[2017-12-23] MEDS: CYMBALTA PO SCH (08:46)
[2017-12-23] MEDS: NORVASC TAB 2.5 MG PO SCH (08:47)
[2017-12-23] MEDS: VITAMIN E PO SCH (08:47)
[2017-12-23] MEDS: SINGULAIR TAB 10 MG PO SCH (08:47)
[2017-12-23] MEDS: TRICOR TAB 145 MG PO SCH (08:47)
[2017-12-23] MEDS: ZESTRIL TAB 20 MG PO SCH (08:47)
[2017-12-23] MEDS: VITAMIN B-6 PO SCH (08:48)
[2017-12-23] MEDS ORDERED: ALDACTONE TAB 25 MG PO SCH (11:00)
[2017-12-23] MEDS ORDERED: LOPRESSOR TAB 25 MG PO SCH (11:00)
[2017-12-23 12:02] VITALS: BP 170/81
== END 2017-12-23 13:40 | disposition left against medical advice (07) ==
LOC: ER 16:40 → MED/SURG 18:48
PROVIDERS: ADMIT Internal Medicine; ATTEND Internal Medicine
DX: R41.82 Altered mental status, unspecified (principal); K74.60 Unspecified cirrhosis of liver; R18.8 Other ascites; K21.9 Gastro-esophageal reflux disease without esophagitis; I10 Essential (primary) hypertension; R53.1 Weakness; B96.20 Unspecified Escherichia coli [E. coli] as the cause of diseases classified elsewhere
CPT/HCPCS: 36415; 51702; 59020; 80053; 81001; 82140; 85025; 87040; 87086; 87088; 87186; 94760; 96365; 97535; 99218; 99282; 99284; A4216; A4222; G8978; G8979; G8987; G8988; G8989; G0378